=== PATIENT | female | born 1955 | race Hispanic/Latino ===

== ENCOUNTER 2016-10-25 08:43 | Outpatient (CLI) | payer OTHER ==
--- NOTE | 2016-10-25 09:52 | Mammography Report ---
BILATERAL MAMMOGRAM: FINDINGS: There are scattered fibroglandular densities (approximately 25%-50% glandular). No mass, distortion, suspicious calcification, or skin change is seen. Minimal right distortion from prior surgery There is no significant change compared to her prior examination in October 2015. CAD was utilized. IMPRESSION: Negative mammogram. There is no mammographic evidence of malignancy. RECOMMENDATION: Follow-up per ACS guidelines. BI-RADS CATEGORY: 1 = Negative ACR BI-RADS MAMMOGRAPHIC CODES: 0 = Needs additional imaging evaluation; 1 = Negative; 2 = Benign; 3 = Probably benign; 4 = Suspicious; 5 = Malignant; 6 = Known biopsy-proven malignancy COMMENT: 1. Dense breast tissue, i.e., adenosis, fibrocystic changes, etc., may obscure an underlying neoplasm. 2. Approximately 10% of cancers are not detected with mammography. 3. A negative mammography report should not delay biopsy if a clinically suspicious mass is present. COMMENT: Patient follow-up letters are generated in [employer].
--- NOTE | 2016-10-25 10:14 | Mammography Report ---
BONE DENSITY STUDY: DEFINITIONS: BMD = Bone Mineral Density T-score = BMD related to mean peak bone mass of young adult (mean expressed in Standard Deviation) Z-score = Age matched BMD expressed in SD World Health Organization (WHO) Diagnostic Criteria Normal T-score > -1 SD Osteopenia T-score between -1 and -2.4 SD Osteoporosis T-score -2.5 SD or below FINDINGS: The weighted average BMD of lumbar spine L1-L4 is 0.934 with a T-score of -1.0. The weighted average BMD of the right hip is 0.868 with a T-score of -0.6. These findings demonstrate an improvement in the lumbar spine compared to her prior examination in March 2014. The right findings are similar to the left hip findings at that time. IMPRESSION: The patient's average T-score is diagnostic for normal bone density and low relative risk for fracture. NOTE: BMD is not the only risk factor for fracture; also consider factors such as the patient's age, risk of falling, previous osteoporotic fracture, family history of osteoporotic fractures, current smoker, and low body weight. Javier's triangle is a region of interest in femur, predominantly of trabecular bone. It is not a true anatomic site, and ISCD does not recommend its use clinically.
== END 2016-10-25 08:44 | disposition home or self-care (01) ==
LOC: SPVWC 08:43
PROVIDERS: ATTEND Internal Medicine
DX: Z12.31 Encounter for screening mammogram for malignant neoplasm of breast (principal); Z13.820 Encounter for screening for osteoporosis
CPT/HCPCS: 77080; G0202; 77067

== ENCOUNTER 2018-03-09 14:50 | Outpatient (CLI) | payer OTHER ==
--- NOTE | 2018-03-10 12:40 | Mammography Report ---
BILATERAL DIGITAL SCREENING MAMMOGRAM with CAD: 03/09/18 14:50:00 CLINICAL: Routine screening. COMPARISON:10/25/16 and 10/17/15 FINDINGS: The breasts are heterogeneously dense, which may obscure small masses. No mass, architectural distortion or suspicious calcifications. IMPRESSION: No mammographic evidence of malignancy. BI-RADS CATEGORY: 1 - - Negative RECOMMENDATION: Routine mammographic screening in one year. COMMENT: Patient follow-up letters are generated by our [employer] application.
== END 2018-03-09 14:51 | disposition home or self-care (01) ==
LOC: SPVWC 14:50
PROVIDERS: ATTEND Family Medicine
DX: Z12.31 Encounter for screening mammogram for malignant neoplasm of breast (principal)
CPT/HCPCS: 77067

== ENCOUNTER 2018-09-11 09:38 | Outpatient (CLI) | payer OTHER ==
--- NOTE | 2018-09-11 12:24 | Mammography Report ---
BONE DENSITY STUDY: DEFINITIONS: BMD = Bone Mineral Density T-score = BMD related to mean peak bone mass of young adult (mean expressed in Standard Deviation) Z-score = Age matched BMD expressed in SD World Health Organization (WHO) Diagnostic Criteria Normal T-score > -1 SD Osteopenia T-score between -1 and -2.4 SD Osteoporosis T-score -2.5 SD or below FINDINGS: The weighted average BMD of lumbar spine L1-L4 is 0.913 with a T-score of -1.2. The weighted average BMD of hip is 0.84 with a T-score of -0.8. IMPRESSION: The patient's T-score is diagnostic for osteopenia and average relative risk for fracture. NOTE: BMD is not the only risk factor for fracture; also consider factors such as the patient's age, risk of falling, previous osteoporotic fracture, family history of osteoporotic fractures, current smoker, and low body weight. Javier's triangle is a region of interest in femur, predominantly of trabecular bone. It is not a true anatomic site, and ISCD does not recommend its use clinically.
== END 2018-09-11 09:39 | disposition home or self-care (01) ==
LOC: SPVWC 09:38
PROVIDERS: ATTEND Family Medicine
DX: Z13.820 Encounter for screening for osteoporosis (principal); M85.88 Other specified disorders of bone density and structure, other site
CPT/HCPCS: 77080

== ENCOUNTER 2020-10-15 08:32 | Outpatient (CLI) | payer MEDICARE, OTHER ==
--- NOTE | 2020-10-15 09:50 | Mammography Report ---
DEXA BONE DENSITY SCAN INDICATION / CLINICAL INFORMATION: SCREENING FOR OSTEOPOROSIS. 64 years Female COMPARISON: DEXA scan dated 09/11/2018 LUMBAR SPINE, L1-L4: - Bone mineral density (BMD) = 0.919 g/cm2. - T-score = -1.2 - Z-score = 0.7 Change (%) since most recent prior (if available): +0.6 RIGHT HIP, NECK : - Bone mineral density (BMD) = 0.667 g/cm2. - T-score = -1.6 - Z-score = -0.1 Change (%) since most recent prior (if available): +6.0 IMPRESSION: 1. WHO Classification: Osteopenia. Fracture Risk: Increased. Note: 10-Year Fracture Risk (FRAX) not reported. This DEXA unit lacks FRAX functionality. BMD Reporting Guidelines (ISCD, 2015) BMD Reporting in Postmenopausal Women and in Men Age 50 and Older - T-scores are preferred. - The WHO densitometric classification is applicable. BMD Reporting in Females Prior to Menopause and in Males Younger Than Age 50 - Z-scores, not T-scores, are preferred. This is particularly important in children. - A Z-score of -2.0 or lower is defined as below the expected range for age, and a Z-score above -2.0 is within the expected range for age. - Osteoporosis cannot be diagnosed in men under age 50 on the basis of BMD alone. - The WHO diagnostic criteria may be applied to women in the menopausal transition. http://www.iscd.org/official-positions/8773-pfnl-wlzmuorx-positions-adult/ Signer Name: Kirby Lopez MD Signed: 10/15/2020 9:45 AM Workstation Name: [email or web address]
--- NOTE | 2020-10-15 12:41 | Mammography Report ---
DIGITAL SCREENING MAMMOGRAM WITH CAD, 10/15/2020 CLINICAL INFORMATION / INDICATION: Routine screening mammography. SCREENING MAMMO TECHNIQUE: Digital bilateral 2D mammography was obtained in the craniocaudal and mediolateral obliqu e projections. This examination was interpreted with the benefit of Computer-Aided Detection analysis . COMPARISON: 05/09/2018. FINDINGS: Breast Density: There are scattered areas of fibroglandular density. No dominant mass, suspicious calcifications, or architectural distortion in either breast. IMPRESSION: No mammographic evidence of malignancy. Follow up recommendation: Routine yearly BI-RADS Category 1: Negative. A "normal" or negative report should not discourage follow up or biopsy of a clinically significant f inding. A written summary of these findings will be mailed to the patient. The patient will be entered into a mammography reporting system which will generate a reminder letter for the patient's next appointmen t at the appropriate interval. The [employer] recommends yearly mammograms starting at age 40 and continuing as l dorothy as a woman is in good health. Breast MRI is recommended for women with an approximate 20-25% or greater lifetime risk of breast cancer, including women with a strong family history of breast or ova devin cancer or who have been treated for Hodgkin's disease. Signer Name: Rashel Estrada MD Signed: 10/15/2020 12:37 PM Workstation Name: [id number]
== END 2020-10-15 08:33 | disposition home or self-care (01) ==
LOC: SPVWC 08:32
PROVIDERS: ATTEND Internal Medicine
DX: Z12.31 Encounter for screening mammogram for malignant neoplasm of breast (principal); Z13.820 Encounter for screening for osteoporosis
CPT/HCPCS: 77067; 77080

== ENCOUNTER 2021-12-16 09:01 | Outpatient (CLI) | payer OTHER ==
--- NOTE | 2021-12-16 14:21 | Mammography Report ---
DIGITAL SCREENING MAMMOGRAM WITH CAD, 12/16/2021 CLINICAL INFORMATION / INDICATION: Routine screening mammography. SCREENING MAMMO TECHNIQUE: Digital bilateral 2D mammography was obtained in the craniocaudal and mediolateral obliqu e projections. This examination was interpreted with the benefit of Computer-Aided Detection analysis . COMPARISON: 10/17/2015 through 10/15/2020. FINDINGS: Breast Density: There are scattered areas of fibroglandular density. No dominant mass, suspicious calcifications, or architectural distortion in either breast. There are bilateral reduction changes. Benign-appearing nodularity bilaterally has not changed signif icantly. No new abnormality is seen. IMPRESSION: No mammographic evidence of malignancy. Follow up recommendation: Routine yearly screening mammogram. BI-RADS Category 2: BENIGN. A "normal" or negative report should not discourage follow up or biopsy of a clinically significant f inding. A written summary of these findings will be mailed to the patient. The patient will be entered into a mammography reporting system which will generate a reminder letter for the patient's next appointmen t at the appropriate interval. The [employer] recommends yearly mammograms starting at age 40 and continuing as l dorothy as a woman is in good health. Breast MRI is recommended for women with an approximate 20-25% or greater lifetime risk of breast cancer, including women with a strong family history of breast or ova devin cancer or who have been treated for Hodgkin's disease. Signer Name: Alex Arteaga MD Signed: 12/16/2021 2:17 PM Workstation Name: [email or web address]
== END 2021-12-16 09:02 | disposition home or self-care (01) ==
LOC: SPVWC 09:01
PROVIDERS: ATTEND Internal Medicine
DX: Z12.31 Encounter for screening mammogram for malignant neoplasm of breast (principal)
CPT/HCPCS: 77067

== ENCOUNTER 2022-01-01 08:59 | Outpatient (CLI) | payer OTHER ==
--- NOTE | 2022-01-01 14:55 | Ultrasound Report ---
ULTRASOUND PELVIS INDICATION / CLINICAL INFORMATION: VAG BLEEDING. TECHNIQUE: Transabdominal and Transvaginal. Duplex Color Doppler used: Yes. COMPARISON: None available FINDINGS: UTERUS: - Appearance: Retroverted. - Size (cm): 6.7 x 4.3 x 3.7 cm. - Endometrial Complex (if present): IUD is visualized in the fundal endometrium. There is significant endometrial thickening. Thickness in cm (if measured) = 1.4 cm. - Mass or cyst: None. - Additional findings: Tiny nabothian cysts noted within the cervix. RIGHT ADNEXA: The right ovary measures 1.9 x 1.6 x 0.8 cm. No significant ovarian cyst or mass. Yoselyn l color Doppler blood flow. LEFT ADNEXA: The left ovary measures 1.2 x 0.8 x 1.8 cm. No significant ovarian cyst or mass. Normal color Doppler blood flow. URINARY BLADDER: No significant abnormality. FREE FLUID: None. ADDITIONAL FINDINGS: None. IMPRESSION: 1. Markedly thickened and heterogeneous endometrium. IUD is visualized in the fundal endometrium. Leandra se follow-up recommended Scribed by: Concha Feliz RDMS, COLTEN, VEL Scribed: 01/01/2022 11:50 AM I have reviewed the images, agree with this report, and edited this report as needed. Signer Name: Bruce Nails MD Signed: 01/01/2022 2:50 PM Workstation Name: [id number]
== END 2022-01-01 09:00 | disposition home or self-care (01) ==
LOC: US 08:59
PROVIDERS: ATTEND Internal Medicine
DX: N95.0 Postmenopausal bleeding (principal); R93.89 Abnormal findings on diagnostic imaging of other specified body structures; Z97.5 Presence of (intrauterine) contraceptive device
CPT/HCPCS: 76830; 76856